=== PATIENT | male | born 1940 | race Caucasian/White ===

== ENCOUNTER 2016-07-28 23:08 | Emergency (ER) | payer OTHER ==
[2016-07-28 23:14] VITALS: RESP 16
--- NOTE | 2016-07-28 23:23 | CPEKG ---
Heart Rate: 68 RR Interval: 882 P-R Interval: 164 QRSD Interval: 92 QT Interval: 408 QTC Interval: 434 P [place]: 76 QRS [place]: -3 T Wave [place]: 44 EKG Severity - ABNORMAL ECG - EKG Impression: SINUS RHYTHM EKG Impression: MULTIPLE ATRIAL PREMATURE COMPLEXES Electronically Signed By: Estefani Yanez 29-Jul-2016 07:07:23
--- NOTE | 2016-07-28 23:29 | EDPHY ---
H & P Stated Complaint: irregular heart rate Source: Patient Exam Limitations: No limitations - Personal History Current Tetanus/Diphtheria Vaccine: No - Medical/Surgical History Hx Asthma: Yes Hx Chronic Respiratory Disease: No Hx Diabetes: No Hx Cardiac Disease: No Hx Renal Disease: No Hx Cirrhosis: No Hx Alcoholism: No Hx HIV/AIDS: No Hx Splenectomy or Spleen Trauma: No Other PMH: PMHx: prostate CA, kidney stone, childhood asthma. PSHx: prostatectomy, hernia repair - Social History Smoking Status: Never smoked HPI/ROS: CHIEF COMPLAINT: Heart beat irregularity HISTORY OF PRESENT ILLNESS: complains of 2-3 days of irregular heartbeat. He denies any pain of any kind during this, before this or at all. He says that 2 days ago he just noted that his heart was beating irregularly to him. He felt as though he was having palpitations. Had no shortness of breath. No fever, chills, lightheadedness or dizziness. No predictable modifying factors for this. No history of atrial fibrillation or atrial flutter. No history of coronary artery disease. Does report that he was told he had a murmur remotely. He has not had an echocardiogram at any point. No previous stress test or heart catheterization. He was exercising regularly until this started a few days ago. No recent illness, fever or chills. No dehydration. No other associated complaints or modifying factors. REVIEW OF SYSTEMS: Ten systems reviewed and are negative unless otherwise noted in the HPI EXAMINATION General Appearance: Alert, no distress Head: normocephalic, atraumatic Eyes: Pupils equal and round, no conjunctival pallor or injection ENT, Mouth: Mucous membranes moist . Uvula midline. No erythema or edema. Neck: Normal inspection, supple, non-tender Respiratory: Lungs are clear to auscultation . No wheezing, rhonchi or crackles. Cardiovascular: Regular rate with irregular beats. Pulses intact distally and symmetrically. Gastrointestinal: Abdomen is soft and nontender Neurological: A&O, nonfocal, normal gait . Strength is symmetric in all limbs. Skin: Warm and dry, Nonspecific dermatitis to the upper chest. No petechiae purpura. Extremities: Nontender, no pedal edema . Range of motion is symmetric in all limbs. Psychiatric: Mood and affect normal DIFFERENTIAL DIAGNOSES: Including but not limited to Atrial fibrillation, atrial flutter, paroxysmal AFib, PACs, PVCs, palpitations MDM: 11:25 p.m. palpitations with sinus rhythm with PACs on EKG. No atrial fibrillation or flutter. Stable vital signs. No chest pain of any kind. No shortness of breath. No distress. Laboratory studies And chest x-ray are pending at this time. he is in no acute distress resting comfortably. 12:04 a.m. I have discussed the case with Dr. Yanez. anticipated that the patient's laboratory studies will be within normal limits and that he will be able to be discharged home for outpatient follow-up. Electrolytes, troponin, TSH are pending at this time. Please see her note for disposition. EKG: Interpreted by Dr. Yanez Rate is 68 beats per minute. Sinus rhythm with PACs. [place] interval is 164. QTC interval 408. normal axis. No ST depression or elevation. T-waves inverted in AVR only. No signs of ischemia. PACs noted. Interpretation: Sinus rhythm with PACs. SUPERVISION: Patient was evaluated in conjunction with the supervising physician. Please see their note for details. (Ze Ayala) Constitutional: Initial Vital Signs Temperature (C) 98.2 F 07/28/16 23:10 Heart Rate 75 07/28/16 23:10 Respiratory Rate 16 07/28/16 23:10 Blood Pressure 151/69 H 07/28/16 23:10 O2 Sat (%) 96 07/28/16 23:10 O2 Delivery Mode Room Air Allergies/Adverse Reactions: No Known Allergies Allergy (Unverified 07/28/16 23:10) Home Medications: Medication Instructions Recorded NK [No Known Home Meds] 07/28/16 Medical Decision Making ED Course/Re-evaluation: PHYSICIAN DOCUMENTATION: The patient was evaluated and managed by the Physician Production Technician. My co- signature indicates that I have reviewed this chart and I agree with the findings and plan of care as documented. I am the secondary supervising physician. I followed up on the patient's lab test results which were all unremarkable except for very slightly elevated TSH. I have explained this result to him and I have encouraged him to follow up with his primary care doctor for further thyroid studies if indicated. I would suspect hyperthyroidism rather than hypothyroidism to cause his symptoms, thus I do not feel the elevated TSH is playing a role in his current symptomatology. (Estefani Yanez) - Data Points Laboratory Results: Laboratory Results 07/28/16 23:25 07/28/16 23:25 Departure - Departure Disposition: Home, Routine, Self-Care Clinical Impression: Premature atrial complexes, Palpitations Condition: Good Instructions: Palpitations (ED), Premature Atrial Contractions (ED) Additional Instructions: Follow-up with primary care physician and all around gear machine operator for definitive care. Return to the ER for any chest pain any time. Return to the ER for syncope or near syncope. Referrals: Michaela Hill MD [Medical Doctor] - As per Instructions
[2016-07-28 23:52] LABS: % IMMATURE GRANULYOCYTES 0.3 % (0.0-1.1); ABSOLUTE IMMATURE GRANULOCYTES 0.02 10^3/uL (0.00-0.10); ADD DIFF? NO; ADD MORPH? NO; ADD SCAN? NO; ATYPICAL LYMPHOCYTE FLAG 30 (0-99); FRAGMENT RBC FLAG 0 (0-99); HEMATOCRIT 43.6 % (40.0-51.0); HEMOGLOBIN 14.9 g/dL (13.7-17.5); LEFT SHIFT FLG 0 (0-99); LIPEMIA HEMOLYSIS FLAG 90 (0-99); MEAN CELL HEMOGLOBIN 31.2 pg (27.9-34.1); MEAN CELL HEMOGLOBIN CONCENTR. 34.2 g/dL (32.4-36.7); MEAN CELL VOLUME 91.2 fL (81.5-99.8); MEAN PLATELET VOLUME 10.8 fL (8.7-11.7); PLATELET CLUMPS FLAG 0 (0-99); PLATELET COUNT 238 10^3/uL (150-400); RED BLOOD CELL COUNT 4.78 10^6/uL (4.40-6.38); RED CELL DISTRIBUTION WIDTH 13.4 % (11.5-15.2)
[2016-07-29 00:05] LABS: ANION GAP 12 mEq/L (8-16); CARBON DIOXIDE 24 mEq/l (22-31); CHLORIDE 106 mEq/L (97-110); CREATININE 1.2 mg/dL (0.7-1.3); GLOMERULAR FILTRATION RATE 59; GLUCOSE 107 mg/dL (70-100); INR 1.05 (0.83-1.16); POTASSIUM 4.1 mEq/L (3.5-5.2); PROTIME(PATIENT) 13.6 SEC (12.0-15.0); SODIUM 142 mEq/L (134-144)
[2016-07-29 00:18] LABS: TROPONIN I < 0.012 ng/mL (0-0.034)
[2016-07-29 00:34] VITALS: O2SAT 95
[2016-07-29 00:54] VITALS: BP 137/84; PULSE 61; TEMP 98.1
== END 2016-07-29 00:53 | disposition home or self-care (01) ==
DX: I49.1 Atrial premature depolarization (principal); J45.909 Unspecified asthma, uncomplicated; Z85.46 Personal history of malignant neoplasm of prostate

== ENCOUNTER → 2016-08-04 | Outpatient (CLI) | payer OTHER | LOC: BHFA 14:15 | PROVIDERS: ATTEND Internal Medicine Cardiovascular Disease | DX: I49.1 Atrial premature depolarization (principal); I10 Essential (primary) hypertension; R01.1 Cardiac murmur, unspecified ==

== ENCOUNTER → 2016-08-05 | Outpatient (CLI) | payer OTHER | LOC: BHFA 13:30 | PROVIDERS: ATTEND Internal Medicine Cardiovascular Disease | DX: I49.1 Atrial premature depolarization (principal) ==

== ENCOUNTER → 2016-08-11 | Outpatient (CLI) | payer OTHER | LOC: BHFA 16:15 | PROVIDERS: ATTEND Internal Medicine Cardiovascular Disease | DX: R01.1 Cardiac murmur, unspecified (principal) ==